=== PATIENT | male | born 1950 | race Caucasian/White ===

== ENCOUNTER → 2016-08-24 | Outpatient (CLI) | payer BC ==
[~2016-08-24] MED LIST: ALBUAER2 INH; ATEN-173 PO; CHOL100010 PO; FLUT0.15 INTNAS; HYDR200T5 PO; HYDR25TA4 PO; MULT-190 PO; MULT-506 PO; OLME1TAB11 PO; OMEG12006 PO; OMEP20TA PO; RIVA1TAB4 PO; SIMV-151 PO; TRIA0.1C20 TOP
--- NOTE | 2016-08-24 14:43 | DIAGNOSTIC IMAGING REPORT ---
AP STANDING VIEW OF BOTH KNEES; 3 VIEWS LEFT KNEE CLINICAL HISTORY: Left knee pain. FINDINGS: An AP standing view of both knees with lateral, tunnel, and sunrise views of the left knee are compared to study dated 03/20/2015. The skeletal structures are osteopenic. No fracture is seen. There is moderate degenerative narrowing at the patellofemoral articulation with mild narrowing seen in the medial and lateral compartments. There are large patellar enthesophytes. There is no evidence of osteochondral defect on the tunnel image. A joint effusion is suspected. Mild soft tissue swelling is present around the knee. Survey images of the right knee on the frontal view show an arthroplasty in near-anatomic alignment. No periprosthetic lucency is suggested. Atherosclerotic calcification is present within the popliteal artery bilaterally. IMPRESSION: 1. Soft tissue swelling and joint effusion with no acute bony abnormality identified in the left knee. 2. Osteopenia and mild degenerative change as above. 3. A right knee arthroplasty is in near anatomic alignment. Electronically signed by: Santos Topete M.D. 08/24/2016 2:41 PM Dictated Date/Time: 08/24/2016 2:38 PM
== END | disposition home or self-care (01) ==
LOC: C.RDSM 14:30
PROVIDERS: ATTEND Physician Assistant
DX: M25.562 Pain in left knee (principal)

== ENCOUNTER → 2016-11-15 | Outpatient (CLI) | payer BC ==
--- NOTE | 2016-11-15 14:06 | DIAGNOSTIC IMAGING REPORT ---
RIGHT HEEL MIN 2 VIEWS CLINICAL HISTORY: 66 years-old Male presenting with RIGHT HEEL PAIN. TECHNIQUE: Frontal and lateral views of the right calcaneus were obtained. COMPARISON: None. FINDINGS: Atherosclerosis. Prominent osteophyte at the posterior calcaneal tuberosity. Mild diffuse soft tissue thickening. No acute fracture or malalignment. IMPRESSION: 1. No acute osseous injury of the right calcaneus. Degenerative changes at the posterior calcaneal tuberosity, insertion site of the Achilles tendon. Electronically signed by: Jacoby Nuñez M.D. 11/15/2016 2:05 PM Dictated Date/Time: 11/15/2016 2:03 PM
== END | disposition home or self-care (01) ==
LOC: C.RDSM 12:16
PROVIDERS: ATTEND Physician Assistant
DX: M79.671 Pain in right foot (principal)

== ENCOUNTER → 2017-05-10 | Outpatient (CLI) | payer BC | END | disposition home or self-care (01) | LOC: C.RDSM 12:45 | PROVIDERS: ATTEND Orthopaedic Surgery Sports Medicine | DX: Z96.659 Presence of unspecified artificial knee joint (principal) ==

== ENCOUNTER → 2017-05-15 | Outpatient (CLI) | payer BC ==
--- NOTE | 2017-05-15 13:14 | DIAGNOSTIC IMAGING REPORT ---
CHEST 2 VIEWS ROUTINE CLINICAL HISTORY: R06.02,R07.89,R06.2 dyspnea COMPARISON STUDY: 03/01/2017 FINDINGS: Moderate cardiomegaly considered stable. Moderate prominence of pulmonary vasculature slightly increased in the prior study. Slight blunting lateral costophrenic angles. Moderate stable degenerative changes thoracic spine. IMPRESSION: Early congestive failure. The above report was generated using voice recognition software. It may contain grammatical, syntax or spelling errors. Electronically signed by: Poncho Thomas M.D. 05/15/2017 1:12 PM Dictated Date/Time: 05/15/2017 1:12 PM
== END | disposition home or self-care (01) ==
LOC: C.RAD1850 12:53
PROVIDERS: ATTEND Physician Assistant
DX: I50.9 Heart failure, unspecified (principal); R06.02 Shortness of breath; R07.89 Other chest pain; R06.2 Wheezing

== ENCOUNTER 2017-07-26 20:47 | Emergency (ER) | payer BC ==
[~2017-07-26 20:47] MED LIST changes: +BNC/20 PO; -OLME1TAB11 PO
[2017-07-26 23:18] LABS: HEMATOCRIT 48.7 % (42-52); HEMOGLOBIN 16.8 g/dL (14.0-18.0); MEAN CORPUSCULAR HEMOGLOBIN 29.7 pg (25-34); MEAN CORPUSCULAR HGB CONC 34.5 g/dl (32-36); MEAN PLATELET VOLUME 10.8 fL (7.4-10.4); PLATELET COUNT 216 K/uL (130-400); RED CELL DISTRIBUTION WIDTH CV 14.1 % (11.5-14.5); WHITE BLOOD COUNT 11.05 K/uL (4.8-10.8)
[2017-07-26 23:22] LABS: BLOOD UREA NITROGEN 21 mg/dl (7-18); CALCIUM 9.6 mg/dl (8.5-10.1); CARBON DIOXIDE 27 mmol/L (21-32); POTASSIUM 3.9 mmol/L (3.5-5.1); SODIUM 136 mmol/L (136-145)
[2017-07-26 23:23] LABS: CREATININE 1.49 mg/dl (0.60-1.40); GLUCOSE 106 mg/dl (70-99)
[2017-07-26 23:24] LABS: INR 1.4 (0.9-1.1); PTT PATIENT 33.4 SECONDS (21.0-31.0)
[2017-07-26] MEDS ORDERED: SODIUM CHLORIDE 0.9% 500ML 500 ML IV STA (23:26)
[2017-07-26] MEDS ORDERED: OXYCODONE IR HOME PACK PO ONE (23:45)
[2017-07-26] MEDS ORDERED: ONDANSETRON HOME PACK 4MG OD TAB PO ONE (23:45)
--- NOTE | 2017-07-27 00:07 | EMERGENCY ROOM VISIT NOTE ---
History Report prepared by Marisabel: Sergio Barker Under the Supervision of: Dr. Narciso Ca D.O. Stated Complaint: LOWER LEFT STOMACH PAIN History of Present Illness The patient is a year 66 old male who presents to the Emergency Room with complaints of constant left flank pain since 1729 today. He notes the pain began to radiate to the front of his abdomen. He notes the pain was worsened with sitting. He reports urinating six times. He notes the pain is relieved with standing. He denies any history of kidney stones. He denies any dark urine. He denies any nausea or vomiting. He reports belching. He notes the pain seems to have dissipated after he urinated while here in the ED and is able to sit down and lay down without significant pain. He currently describes the pain as sore. He has a history of atrial fibrillation and he regularly takes Xarelto. He has a history of pseudogout. He recently had a URI in the fall of 2016. He was recently placed on Lasix about one month ago. Source of History: patient Onset: since 1729 today Position: other (left flank) Quality: other (sore) Timing: constant Modifying Factors (Worsening): other (sitting) Modifying Factors (Relieving): other (standing) Associated Symptoms: No nausea, No vomiting Note: He notes belching. He denies any dark urine. Review of Systems See HPI for pertinent positives & negatives. A total of 10 systems reviewed and were otherwise negative. Past Medical & Surgical Surgical Problems: (1) Status post total knee replacement, right Family History No pertinent family history Social History Smoking Status: Never Smoker Smokeless Tobacco Use: No Alcohol Use: none Drug Use: none Marital Status: Housing Status: lives with significant other Current/Historical Medications Scheduled Atenolol (Tenormin), 25 MG PO BID Cholecalciferol (Vitamin D), 1,000 INTER.UNIT PO QAM Hydrochlorothiazide (Hctz), 25 MG PO QAM Hydroxychloroquine Sulfate (Plaquenil), 200 MG PO BID Multivitamin (Multivitamin), 1 TAB PO QAM Ocuvite Preservision (Ocuvite Preservision), 1 TAB PO BID Olmesartan Medoxomil (Benicar), 20 MG PO QAM [place]-3 Fatty Acids ([place] 3), 2 TAB PO QPM Rivaroxaban (Xarelto), 20 MG PO QPM Simvastatin (Simvastatin), 20 MG PO QPM Triamcinolone Acet 0.1% (Aristocort 0.1%), 1 DOSE TOP 3XWK Scheduled PRN Albuterol (Ventolin), 2 PUFFS INH QID PRN for PRN Fluticasone Propionate (Nasal) (Flonase Allergy Relief), 2 SPRAYS INTNAS BID PRN for RN Omeprazole (Omeprazole), 1 TAB PO DAILY PRN for PRN Allergies Coded Allergies: Diphenhydramine (Verified Allergy, Unknown, RAPID HEARTBEAT, 01/11/16) Erythromycin (Verified Allergy, Unknown, MEMORY LOSS, 01/11/16) Physical Exam Physical Exam GENERAL: Patient is awake, alert, and in no acute distress. Patient is resting comfortably and showing no signs of anxiety EYES: The conjunctivae are clear. The pupils are round and reactive. EARS, NOSE, MOUTH AND THROAT: The nose is without any evidence of any deformity. Mucous membranes are moist tongue is midline NECK: The neck is nontender and supple. RESPIRATORY: Normal respiratory effort is noted there is no evidence of wheezing rhonchi or rales CARDIOVASCULAR: Regular rate and rhythm noted there no murmurs rubs or gallops normal S1 normal S2 GASTROINTESTINAL: The abdomen is soft. Bowel sounds are present in all quadrants. Abdomen is nontender BACK: Left CVA tenderness to percussion, no midline tenderness and ROM appeared intact. MUSCULOSKELETAL/EXTREMITIES: There is no evidence of gross deformity full range of motion is noted in the hips and shoulders SKIN: There is no obvious evidence of any rash. There are no petechiae, pallor or cyanosis noted. NEUROLOGIC: Patient is awake alert and oriented x3 strength is symmetric patellar reflexes are 2+ bilaterally Medical Decision & Procedures ER Provider Diagnostic Interpretation: Radiology results as stated below per my review and interpretation: CT A/P: Revealed Preliminary Findings Only See Final Report For Complete Findings CT ABDOMEN & PELVIS Without Contrast: There are a total 2 stones measuring 2 mm in the mid and inferior left kidney. No hydronephrosis. No ureteral stones. There are 2 tiny stones measuring 2 mm within the bladder, mainly at the posterior lateral right aspect. Small mildly hyperdense structure within the gallbladder probably represents cholelithiasis. No CT evidence of cholecystitis. No biliary dilatation. Normal appendix. No bowel wall thickening or bowel obstruction. Small fat-containing right inguinal hernia. Levoscoliosis. Multilevel degenerative changes of the spine. Bilateral L4 pars defect with anterolisthesis at L4-L5 measuring 7mm. (Transitional vertebral body at lumbosacral junction designated S1). Radiologist: Ren Horvath MD Study ready at 23:06 and initial results transmitted at 23:18 Laboratory Results 07/26/17 22:00 07/26/17 22:00 Test 07/26/17 22:00 Red Blood Count 5.66 M/uL (4.7-6.1) Mean Corpuscular Volume 86.0 fL (80-100) Mean Corpuscular Hemoglobin 29.7 pg (25-34) Mean Corpuscular Hemoglobin Concent 34.5 g/dl (32-36) RDW Standard Deviation 44.0 fL (36.4-46.3) RDW Coefficient of Variation 14.1 % (11.5-14.5) Mean Platelet Volume 10.8 fL (7.4-10.4) Prothrombin Time 14.1 SECONDS (9.0-12.0) Prothromb Time International Ratio 1.4 (0.9-1.1) Activated Partial Thromboplast Time 33.4 SECONDS (21.0-31.0) Partial Thromboplastin Ratio 1.3 Urine Color YELLOW Urine Appearance CLEAR (CLEAR) Urine pH 5.0 (4.5-7.5) Urine Specific [place] 1.015 (1.000-1.030) Urine Protein NEG (NEG) Urine Glucose (UA) NEG (NEG) Urine Ketones NEG (NEG) Urine Occult Blood 2+ (NEG) Urine Nitrite NEG (NEG) Urine Bilirubin NEG (NEG) Urine Urobilinogen NEG (NEG) Urine Leukocyte Esterase NEG (NEG) Urine WBC (Auto) 0 /hpf (0-5) Urine RBC (Auto) 5-10 /hpf (0-4) Urine Hyaline Casts (Auto) 0 /lpf (0-5) Urine Epithelial Cells (Auto) 0-5 /lpf (0-5) Urine Bacteria (Auto) NEG (NEG) Anion Gap 7.0 mmol/L (3-11) Estimated GFR () 56.7 Estimated GFR (Non- 48.9 BUN/Creatinine Ratio 14.0 (10-20) Calcium Level 9.6 mg/dl (8.5-10.1) Laboratory results per my review. Medications Administered Medications (Trade) Dose Ordered Sig/Cynthia Route Start Time Stop Time Status Last Admin Dose Admin Sodium Chloride 500 ml @ 999 mls/hr Q31M STAT IV 07/26/17 23:26 07/26/17 23:56 DC 07/26/17 23:37 999 MLS/HR Oxycodone HCl (Roxicodone Immediate Rel 5MG Home Pack) 1 homepack UD ONCE PO 07/26/17 23:45 07/26/17 23:46 DC 07/26/17 23:45 1 HOMEPACK Ondansetron HCl (ZOFRAN ODT 4MG Home Pack) 1 homepack UD ONCE PO 07/26/17 23:45 07/26/17 23:46 DC 07/26/17 23:45 1 HOMEPACK ED Course 3: The patient was evaluated in room C10. A complete history and physical examination were performed. 2336: I reassessed the patient at this time. He is feeling better and resting comfortably. I discussed the results and treatment plan with the patients mother. I answered all pertaining questions that she had. She expressed understanding and verbalized agreement. The patient will be discharged home. Medical Decision Prior records/ancillary studies reviewed. Triage Nursing notes reviewed. Differential diagnosis: Etiologies such as renal colic, appendicitis, diverticulitis, mesenteric ischemia, aortic pathology, infections, inflammatory bowel disease, PUD, biliary pathology, UTI, as well as others were entertained. The patient is a 66-year-old male who presented to the emergency department for an evaluation of flank pain. The patient had very significant flank pain prior to arrival which significantly improved prior to my evaluation. The patient had hematuria. He had a CAT scan which revealed some renal calculi as well as calculi in the bladder. At this time I do feel this is consistent with a recently passed kidney stone. I discussed the patient's laboratory and radiographic studies with him. He did not want any pain medication. He was encouraged to continue using Tylenol as directed for pain and follow-up with his primary care physician as soon as possible. He was also encouraged to drink plenty clear liquids. He was treated with IV fluids in the emergency department. He was also encouraged to return the emergency department immediately if symptoms change worsen or the need arises. Medication Reconcilliation Current Medication List: was personally reviewed by me Blood Pressure Screening Patient's blood pressure: Elevated blood pressure Blood pressure disposition: Elevated BP felt to be situational Impression Primary Impression: Kidney stone Scribe Attestation The scribe's documentation has been prepared under my direction and personally reviewed by me in its entirety. I confirm that the note above accurately reflects all work, treatment, procedures, and medical decision making performed by me. Departure Information Dispostion Home / Self-Care Referrals Cassandra Manuel PA-C (PCP) Patient Instructions Kidney Stones Expectant Therapy Additional Instructions Call your family doctor in the morning to schedule a follow-up appointment. Continue using Motrin and Tylenol as directed for pain. Drink plenty clear liquids.
--- NOTE | 2017-07-27 10:19 | DIAGNOSTIC IMAGING REPORT ---
ABD/PELVIS WITHOUT FOR STONE CT DOSE: HISTORY: Abdominal pain. Flank pain. PAIN AT LEFT FLANK TECHNIQUE: Multiaxial CT images of the abdomen and pelvis were performed without the use of intravenous and oral contrast according to the standard department stone protocol. A dose lowering technique was utilized adhering to the principles of ALARA. COMPARISON STUDY: None. FINDINGS: Lung bases are clear. Liver spleen and pancreas are unremarkable. There are 2 nonobstructing calcifications measuring 2.5 mm within the mid and lower pole left kidney. Kidneys are specifically negative for hydronephrosis. Ureters are negative for distention. There are 2 calcifications within the urinary bladder. The bowel pattern within the abdomen and pelvis is nonobstructive. Multiple small gallstones. IMPRESSION: 1. No evidence for an obstructing urinary tract calculus. 2. 2 nonobstructing left renal calcifications. 3. 2 calcifications within the urinary bladder. 4. Nonobstructive bowel pattern. The above report was generated using voice recognition software. It may contain grammatical, syntax or spelling errors. Electronically signed by: Poncho Thomas M.D. 07/27/2017 6:15 AM Dictated Date/Time: 07/27/2017 6:09 AM
== END 2017-07-27 00:11 | disposition home or self-care (01) ==
LOC: C.EDC 20:47
DX: N20.0 Calculus of kidney (principal); I48.91 Unspecified atrial fibrillation; Z79.01 Long term (current) use of anticoagulants; Z79.899 Other long term (current) drug therapy; Z88.1 Allergy status to other antibiotic agents; Z88.8 Allergy status to other drugs, medicaments and biological substances

== ENCOUNTER → 2017-08-24 | Outpatient (CLI) | payer BC | END | disposition home or self-care (01) | LOC: C.RDSM 17:16 | PROVIDERS: ATTEND Orthopaedic Surgery Sports Medicine | DX: M79.642 Pain in left hand (principal); Z88.1 Allergy status to other antibiotic agents; Z88.8 Allergy status to other drugs, medicaments and biological substances ==

== ENCOUNTER 2019-04-15 05:26 | Observation (INO) ==
--- NOTE | 2019-04-10 15:25 | Anesthesiology Consultation ---
Date of Service April 10, 2019 Assessment & Plan (1) Encounter for pre-operative examination: Chart Review Chart Review: Acceptable Risk for Surgery and Patient NOT seen in Pre Admission Testing History Surgery Operation Date: 04/15/19 08:20 Proposed Procedures p Open Right Inguinal Hernia Repair - Cooper Dang MD, FACS Height/Weight Height: 5 ft 10.5 in Weight: 107.501 kg Allergies Allergy/AdvReac Type Severity Reaction Status Date / Time diphenhydramine Allergy Unknown RAPID Verified 04/10/19 13:12 HEARTBEAT erythromycin base Allergy Unknown MEMORY LOSS Verified 04/10/19 13:12 Medications Home Medications Medication Instructions Recorded Confirmed Last Taken acetaminophen [Tylenol Extra 1,000 mg PO Q6H PRN 03/26/19 04/10/19 03/26/19 08:0 0 Strength] allopurinol [Zyloprim] 300 mg PO QAM 03/26/19 04/10/19 03/26/19 amlodipine [Norvasc] 5 mg PO BID 03/26/19 04/10/19 03/26/19 atorvastatin [Lipitor] 20 mg PO QPM 03/26/19 04/10/19 03/25/19 cholecalciferol (vitamin D3) 5,000 unit PO QAM 03/26/19 04/10/19 03/26/19 [Vitamin D3] diclofenac sodium 0 g TOPICAL UNKNOWN PRN 03/26/19 04/10/19 Unknown furosemide 20 mg PO DAILY PRN 03/26/19 04/10/19 Unknown hydroxychloroquine [Plaquenil] 200 mg PO QAM 03/26/19 04/10/19 03/26/19 ketoconazole 1 applic TOPICAL UNKNOWN PRN 03/26/19 04/10/19 Unknown metoprolol succinate [Toprol XL] 100 mg PO QPM 03/26/19 04/10/19 03/25/19 [id number]-[id number]-[id number] 1 tab PO QAM 03/26/19 04/10/19 03/26/19 [Multivitamin 50 Plus] olmesartan [Benicar] 40 mg PO QAM 03/26/19 04/10/19 03/26/19 omega 5-pty-zcf-fish oil [Fish Oil] 2 cap PO QPM 03/26/19 04/10/19 03/25/19 oxycodone [Roxicodone] 5 mg PO Q6H PRN #12 tab 03/26/19 04/10/19 Unknown prednisone 0 mg PO DAILY PRN 03/26/19 04/10/19 Unknown rivaroxaban [Xarelto] 20 mg PO QPM 03/26/19 04/10/19 03/25/19 vitamins A,C,U-ibwv-bgffiy 1 cap PO BID 03/26/19 04/10/19 03/26/19 [PreserVision AREDS] albuterol sulfate [Ventolin HFA] 1 puff INHALATION QID PRN 04/10/19 04/10/19 Unknown metoprolol succinate 50 mg PO QPM 04/10/19 04/10/19 Unknown tamsulosin [Flomax] 0.4 mg PO QPM 04/10/19 04/10/19 Unknown Past Medical History Medical History (Updated 04/10/19 @ 15:29 by Leon Segura) Afib dx 1998; permanent; AC and rate controlled with xarelto and metoprolol; follows with Dr. Pérez Atrial flutter s/p 2015 cardiac ablation Hx of gout Hx of renal calculi will be seenby urology 04.10.19 1300 Hyperlipidemia Hypertension Past Surgical History Surgical History (Updated 04/10/19 @ 12:25 by Ruth Coughlin RN) History of ankle surgery arthroscopy of both ankles and repair History of cardiac radiofrequency ablation for atrial flutter 2016 History of carpal tunnel surgery right and left History of gastric surgery repair of stomach rupture History of open reduction and internal fixation (ORIF) procedure right wrist ORIF History of total right knee replacement Hx of shoulder surgery 2 repair of rotator cuff on right 1 repair of rotator cuff on left Social History Smoking Status: Never smoker Do You Dip or Chew Tobacco: No Hx Alcohol Use: Yes Alcohol type: beer alcohol intake frequency: holidays/special occasions only Hx Substance Use: No substance use type: does not use Testing Laboratory Results 03/26/19 WBC: 6.37 H/H: 17.0/49.4 PLATELETS: 183 SODIUM: 137 POTASSIUM: 3.7 CHLORIDE: 104 CO2: 27 BUN: 19 CREATININE: 1.17 GLUCOSE: 95 Electrocardiogram Date: 03/04/19 Findings: + AFIB @ (79bpm)
[2019-04-15] MEDS ORDERED: LR 15ML/HR IV SCH (06:00)
[2019-04-15] MEDS ORDERED: CEFAZOLIN 2000MG 2,000 MG/15 ML SYR IV SCH (06:00)
[2019-04-15] MEDS ORDERED: BUPIVACAINE 0.5 % 5 MG/1 ML MPF 30ML VIAL ONE (06:34)
[2019-04-15] MEDS ORDERED: CEFAZOLIN 250 MG/ML 1 GM VIAL ONE (06:34)
--- NOTE | 2019-04-15 06:42 | History & Physical Bridge Note ---
Date of Service April 15, 2019 History & Physical Bridge Note I have examined the patient, reviewed the History & Physical and in the interval since the performance of the History & Physical I have noted the following changes of clinical significance: no changes noted
[2019-04-15] MEDS ORDERED: LIDOCAINE HCL 2% 2 ML VIAL/AMP(20MG/ML) INFIL ONE (06:45)
[2019-04-15] MEDS ORDERED: PROPOFOL IV EMULSION 10 MG/ML 20 ML VIAL IV ONE (06:45)
[2019-04-15] MEDS ORDERED: NEOSTIGMINE METHYLSULFATE 5 MG/5 ML SYR ONE (06:45)
[2019-04-15] MEDS ORDERED: ONDANSETRON INJ 2 MG/ML 2 ML VIAL ONE (06:45)
[2019-04-15] MEDS ORDERED: DEXAMETHASONE SOD INJ 4 MG/ML VIAL ONE (06:45)
[2019-04-15] MEDS ORDERED: GLYCOPYRROLATE 0.2 MG/ML VIAL ONE (06:45)
[2019-04-15] MEDS ORDERED: SCOPOLAMINE 1.5 MG TDSY TD SCH (06:45)
[2019-04-15] MEDS ORDERED: SCOPOLAMINE 1.5 MG TDSY ONE (06:46)
[2019-04-15] MEDS ORDERED: MIDAZOLAM HCL 1 MG/ML 2ML VIAL ONE (06:46)
[2019-04-15] MEDS ORDERED: fentaNYL citrate 100 MCG/2 ML VIAL ONE ×2 (06:46)
--- NOTE | 2019-04-15 06:48 | Anesthesiology Consultation ---
Date of Service April 15, 2019 Assessment & Plan Chart Review Chart Review: Acceptable Risk for Surgery and Patient NOT seen in Pre Admission Testing Consults Requested none ASA ASA3 Proposed Anesthesia Anesthesia Type: General Risk / Benefits Reviewed With: PT / POA / Parent / Guardian, Accepts Plan and Informed Consent Obtained History Surgery Operation Date: 04/15/19 07:00 Proposed Procedures p Right Open Inguinal Hernia Repair - Cooper Dang MD, FACS Height/Weight Height: 5 ft 10.5 in Weight: 106.3 kg Allergies Allergy/AdvReac Type Severity Reaction Status Date / Time diphenhydramine Allergy Intermediate RAPID Verified 04/15/19 05:46 HEARTBEAT erythromycin base Allergy Intermediate MEMORY LOSS Verified 04/15/19 05:46 Medications Home Medications Medication Instructions Recorded Confirmed Last Taken Multivitamin 50 Plus 1 tab PO QAM 03/26/19 04/15/19 1 Week Ago ~04/08/19 PreserVision AREDS 1 cap PO BID 03/26/19 04/15/19 1 Week Ago ~04/08/19 Xarelto 20 mg PO QPM 03/26/19 04/15/19 04/10/19 18:00 acetaminophen [Tylenol Extra 1,000 mg PO Q6H PRN 03/26/19 04/15/19 3 Days Ago Strength] ~04/12/19 allopurinol [Zyloprim] 300 mg PO QAM 03/26/19 04/15/19 04/15/19 04:30 amlodipine [Norvasc] 5 mg PO BID 03/26/19 04/15/19 04/15/19 04:30 atorvastatin [Lipitor] 20 mg PO QPM 03/26/19 04/15/19 04/14/19 18:00 cholecalciferol (vitamin D3) 5,000 unit PO QAM 03/26/19 04/15/19 1 Week Ago [Vitamin D3] ~04/08/19 diclofenac sodium 0 g TOPICAL UNKNOWN PRN 03/26/19 04/15/19 1 Month Ago ~03/16/19 furosemide 20 mg PO DAILY PRN 03/26/19 04/15/19 1 Month Ago ~03/16/19 hydroxychloroquine [Plaquenil] 200 mg PO QAM 03/26/19 04/15/19 04/14/19 07:00 ketoconazole 1 applic TOPICAL UNKNOWN PRN 03/26/19 04/15/19 3 Days Ago ~04/12/19 metoprolol succinate [Toprol XL] 100 mg PO QPM 03/26/19 04/15/19 04/14/19 18:00 olmesartan [Benicar] 40 mg PO QAM 03/26/19 04/15/19 04/14/19 07:00 omega 6-ooj-uqw-fish oil [Fish Oil] 2 cap PO QPM 03/26/19 04/15/19 1 Week Ago ~04/08/19 oxycodone [Roxicodone] 5 mg PO Q6H PRN #12 tab 03/26/19 04/15/19 3 Months Ago ~01/14/19 prednisone 0 mg PO DAILY PRN 03/26/19 04/15/19 Unknown albuterol sulfate [Ventolin HFA] 1 puff INHALATION QID PRN 04/10/19 04/15/19 3 Weeks Ago ~03/25/19 metoprolol succinate 50 mg PO QPM 04/10/19 04/15/19 04/14/19 18:00 tamsulosin [Flomax] 0.4 mg PO QPM 04/10/19 04/15/19 04/14/19 19:00 hydrocodone-acetaminophen 1 tab PO Q6H PRN #20 tab 04/12/19 04/15/19 2 Months Ago ~02/13/19 Active Medications Generic Name Dose Route Start Last Admin Trade Name Freq PRN Reason Stop Dose Admin Lactated Ringer's 1,000 mls @ 15 mls/hr 04/15/19 06:00 04/15/19 05:58 Lr IV 04/16/19 05:59 15 mls/hr .Q24H JANUSZ Administration NPO Date Last Intake of Fluids: 04/14/19 Time Last Intake of Fluids: 20:00 Last Intake of Fluids Comment: sips with meds Date Last Intake of Solids: 04/14/19 Time Last Intake of Solids: 20:00 Past Medical History Medical History Afib dx 1998; permanent; AC and rate controlled with xarelto and metoprolol; follows with Dr. Pérez Atrial flutter s/p 2015 cardiac ablation Hx of gout Hx of renal calculi will be seenby urology 04.10.19 1300 Hyperlipidemia Hypertension Sleep apnea CPAP Exercise / Class Metabolic Activity II 4-5 Yardwork/Stairs/Walk up hill Past Family History Family History Son Family history of diabetes mellitus Daughter Family history of diabetes mellitus Other Adopted Past Surgical History Surgical History History of ankle surgery arthroscopy of both ankles and repair History of cardiac radiofrequency ablation for atrial flutter 2016 History of carpal tunnel surgery right and left History of colonoscopy History of esophagogastroduodenoscopy (EGD) History of gastric surgery repair of stomach rupture History of open reduction and internal fixation (ORIF) procedure right wrist ORIF History of total right knee replacement Hx of shoulder surgery 2 repair of rotator cuff on right 1 repair of rotator cuff on left Nausea and vomiting after administration of anesthetic agent Past Anesthesia History No Hx of Anesthesia Complications and No Family Hx of Anesthesia Complications History of PONV No Hx of Motion Sickness and History of PONV Social History Smoking Status: Never smoker Do You Dip or Chew Tobacco: No Hx Alcohol Use: Yes Alcohol type: beer alcohol intake frequency: holidays/special occasions only Hx Substance Use: No substance use type: does not use Physical Exam Vital Signs Last Vital Signs Temp 36.5 C 04/15/19 05:54 Pulse 92 H 04/15/19 05:54 Resp 18 04/15/19 05:54 BP 174/98 H 04/15/19 05:54 Pulse Ox 97 04/15/19 05:54 Constitutional + obese ENMT Mouth: no dentition abnormality Thyromental Distance: > or= 3.5 Finger Breadths Mallampati Class: II Neck normal visual inspection, trachea midline and + facial hair; neck extension not limited Respiratory normal respiratory effort Auscultation: lungs clear to auscultation bilaterally Cardiovascular Rate/Rhythm: + abnormal rate (afib) and + abnormal rhythm (afib) Heart Sounds: no murmur Vessels: no carotid bruit Musculoskeletal Spine: normal cervical ROM Neurologic moves all extremities Motor/Sensory: no sensory deficit Psychiatric Orientation: alert and oriented x 3 Testing Laboratory Results WBC: 6.37 Hc Hct: 49.4 PLATELETS: 183 SODIUM: 137 POTASSIUM: 3.7 CHLORIDE: 104 CO2:27 BUN: 19 CREATININE: 1.17 GLUCOSE: 183 PT: PTT: INR: UA: TYPE AND SCREEN: Electrocardiogram Date: 03/04/19 Findings: + AFIB @ (at 79) Chest X-Ray Date: 04/11/19 Findings: + NAD and + cardiomegaly
[2019-04-15] MEDS ORDERED: ePHEDrine sulfate 50 MG/ML AMP IV PRN (06:54)
[2019-04-15] MEDS ORDERED: PROMETHAZINE HCL 12.5 MG in SODIUM CHLORIDE 0.9% 50 ML IV PRN ×2 (06:54→08:49)
[2019-04-15] MEDS ORDERED: LABETALOL HCL IV 5 MG/ML 20ML IV PRN (06:54)
[2019-04-15] MEDS ORDERED: ATROPINE SULFATE 0.1 MG/ML 10ML SYR IV PRN (06:54)
[2019-04-15] MEDS ORDERED: HYDROmorphone INJ 1 MG/ML SYRINGE IV PRN (06:54)
[2019-04-15] MEDS ORDERED: NALOXONE HCL 0.4 MG/1 ML VIAL/CARP IV PRN (06:54)
[2019-04-15] MEDS ORDERED: ONDANSETRON INJ 2 MG/ML 2 ML VIAL IV PRN ×2 (06:54→08:49)
[2019-04-15] MEDS ORDERED: FLUMAZENIL 0.1 MG/1 ML 10 ML VIAL IV PRN (06:54)
[2019-04-15] MEDS ORDERED: PHENYLEPHRINE 100MCG/ML 5ML SYR ONE (07:32)
[2019-04-15] MEDS ORDERED: KETOROLAC 30 MG/ML VIAL ONE (07:40)
[2019-04-15] MEDS ORDERED: ACETAMINOPHEN 1,000 MG/100 ML VIAL IV STA (07:52)
--- NOTE | 2019-04-15 07:52 | Post Operative Brief Note ---
PG Immediate Post Op with CF Date of Surgery April 15, 2019 Pre & Post Diagnosis Operation Date: 04/15/19 07:00 Pre-Op Diagnosis: Right Inguinal Hernia Post-Op Diagnosis: Right Inguinal Hernia I identified the patient and participated in the time-out.: Yes Procedure Operation Date: 04/15/19 07:00 Actual Procedures p Right Open Inguinal Hernia Repair with Mesh(Right) - Cooper Dang MD, FACS Surgeon Cooper Dang MD, FACS Second Shift Supervisor Shania Camp Estimated Blood Loss 5 Findings Consistent with Post-Op Diagnosis Specimens Specimen Description: A. Lipoma
[2019-04-15] MEDS: fentaNYL citrate 100 MCG/2 ML VIAL IV PRN ×4 (08:17→08:33)
--- NOTE | 2019-04-15 08:30 | Operative Report ---
DATE OF OPERATION: 04/15/2019 NAME OF OPERATION: Open right inguinal hernia repair. PREOPERATIVE DIAGNOSIS: Right inguinal hernia. POSTOPERATIVE DIAGNOSIS: Right inguinal hernia with indirect defect. STAFF SURGEON: Cooper Dang M.D. WALLCOVERING HANGER: Mady Hall. ANESTHESIA: General LMA. DESCRIPTION OF PROCEDURE: The patient was brought in the operating room and placed on the operating table in supine position. His right lower quadrant prepped and draped in usual fashion. My data entry assistant helped with prepping, draping, repair of the hernia and closure of the wound. A 0.5% plain Marcaine was used to anesthetize skin and subcutaneous tissue. Incision made carrying dissection down through adipose tissue to the external oblique fibers. They were incised along their length to the external ring, mobilizing the cord structures. The patient had a lipoma of the cord and an indirect hernia sac which was dissected away from the cord structures and reduced. The lipoma was excised, ligating it using 2-0 silk suture. The internal ring was reinforced using a mesh plug which was secured to surrounding tissue using 0 silk suture and 2-0 Ethibond suture. Large mesh patch placed into the floor of the canal around the cord structures, secured to surrounding tissue using 2-0 Ethibond suture. The site was irrigated with antibiotic solution and the external oblique fibers closed over the mesh around the cord structures using 2-0 Ethibond suture. Deep tissue anesthetized using 0.5% plain Marcaine. Subcutaneous tissue reapproximated using 2-0 plain suture and the skin reapproximated using 4-0 nylon suture with Steri-Strips. Dressing applied and patient transferred to recovery room in stable condition. I attest to the content of the Intraoperative Record and any orders documented therein. Any exception s are noted below.
--- NOTE | 2019-04-15 08:48 | Anesthesiology Progress Note ---
Date of Service April 15, 2019 Anesthesia Post Procedure Vital Signs Vital Signs: Temp Pulse Pulse Resp BP BP Pulse Ox 04/15/19 08:45 36.6 C 86 18 136/85 97 04/15/19 08:35 79 14 136/85 98 04/15/19 08:25 74 15 144/97 H 100 04/15/19 08:15 79 17 142/89 H 100 04/15/19 08:05 36.5 C 72 12 125/80 99 04/15/19 05:54 36.5 C 92 H 18 174/98 H 97 Pain Intensity Right Groin: Pain Intensity: 3 Transfer of Care Handoff Completed per policy Notes Mental Status: alert / awake / arousable Patient Amnestic to Procedure: Yes Nausea / Vomiting: adequately controlled Pain: adequately controlled Airway Patency, RR, SpO2: stable & adequate BP & HR: stable & adequate Hydration State: stable & adequate Anesthetic Complications: no major complications apparent
[2019-04-15] MEDS ORDERED: OXYCODONE/ACETAMINOPHEN 5mg/325mg TAB PO PRN ×2 (08:49)
[2019-04-15] MEDS ORDERED: SODIUM CHLORIDE 0.9% 1000ML 1,000 ML IV SCH (08:49)
[2019-04-15] MEDS ORDERED: MoRPHine SULFATE 2 MG/ML CARP IV PRN (08:49)
[2019-04-15] MEDS ORDERED: FUROSEMIDE 20 MG TAB PO PRN (08:49)
[2019-04-15] MEDS ORDERED: ALBUTEROL HFA 8 GM INHALER INH PRN (08:49)
[2019-04-15] MEDS ORDERED: MoRPHine SULFATE 4 MG/ML 1 ML CARP\\VIAL IV PRN (08:49)
[2019-04-15] MEDS ORDERED: PROMETHAZINE HCL 25 MG in SODIUM CHLORIDE 0.9% 50 ML IV PRN (08:49)
--- NOTE | 2019-04-15 09:18 | Hospitalist Consultation ---
Date of Consultation April 15, 2019 Assessment & Plan (1) H/O right inguinal hernia repair: - Pain control, bowel regimen per primary team - Activity/lifting limitations per primary team - NSS at 50 ml/hr until 1400 today then stop - Diet as tolerated (2) Afib: - Hold xarelto- resume per surgery - Cont metoprolol succinate 150 mg QPM (3) Atrial flutter: s/p cardiac ablation (4) Hypertension: - Continue amlodipine 5 mg BID, metoprolol as above and lasix 20 mg daily prn. Monitor for fluid accumulation and BP status s/p surgical procedure. Continue IVF as above and stop at 1400. (5) Hyperlipidemia: - Cont atorvastatin (6) Hx of gout: - Cont allopurinol (7) Sleep apnea: - Cont CPAP (8) Left ureteral stone: - s/o lithotripsy on 04/12/[address] Gay, has f/u scheduled next week . Continue flomax. - Monitor for residual hematuria - pt notes urine has looked clear and yellow (9) DVT prophylaxis: - Ambulatory, resume xarelto per primary team CODE: Full Dispo: From home, will remain in the hospital overnight and likely discharge tomorrow per primary team. Thank you for involving us in the care of Mr. Dailey. Please do not hesitate to call with questions or concerns. Supervising Physician Co-Signing Physician Notes I reviewed above note by APC and agree with it. I obtained a history and physical examination during my face to face encounter with the patient. My history, physical examination and plan did not differ from the above documentation. Will recommend to continue home BP medications to control his blood pressure. History of Present Illness Reason for Consultation: Medical management Requesting Physician: Dr. Dang Attending Physician: Cooper Dang MD, [facility] History of Present Illness This is a 68 yo M with PMHx of afib, atrial flutter s/p 2016 cardiac ablation, HTN, HLD, gout, hx of nephrolithiasis and sleep apnea on CPAP who presents for an elective right inguinal hernia repair performed by Dr. Dang on 04/15/19. The patient is doing well after surgery. He has eaten breakfast without difficulty or nausea, his pain is very well controlled, he has been up and ambulated to the bathroom without difficulty. His is present at bedside. She notes that she has his CPAP machine with her in the car. She also notes he underwent lithotripsy last Monday and that if there is any hematuria that this is to be expected. He was recently prescribed flomax which he is taking, and vicodin, however this Rx has not been picked up as he didn't need it. Pt does not prefer to take pain medications, and states he will not likely need any prescription pain meds upon d/c. Allergies Allergy/AdvReac Type Severity Reaction Status Date / Time diphenhydramine Allergy Intermediate RAPID Verified 04/15/19 05:46 HEARTBEAT erythromycin base Allergy Intermediate MEMORY LOSS Verified 04/15/19 05:46 Home Medications Home Medications Medication Instructions Recorded Confirmed Type Multivitamin 50 Plus 1 tab PO QAM 03/26/19 04/15/19 History PreserVision AREDS 1 cap PO BID 03/26/19 04/15/19 History Xarelto 20 mg PO QPM 03/26/19 04/15/19 History acetaminophen [Tylenol Extra 1,000 mg PO Q6H PRN 03/26/19 04/15/19 History Strength] allopurinol [Zyloprim] 300 mg PO QAM 03/26/19 04/15/19 History amlodipine [Norvasc] 5 mg PO BID 03/26/19 04/15/19 History atorvastatin [Lipitor] 20 mg PO QPM 03/26/19 04/15/19 History cholecalciferol (vitamin D3) 5,000 unit PO QAM 03/26/19 04/15/19 History [Vitamin D3] diclofenac sodium 0 g TOPICAL UNKNOWN PRN 03/26/19 04/15/19 History furosemide 20 mg PO DAILY PRN 03/26/19 04/15/19 History hydroxychloroquine [Plaquenil] 200 mg PO QAM 03/26/19 04/15/19 History ketoconazole 1 applic TOPICAL UNKNOWN PRN 03/26/19 04/15/19 History metoprolol succinate [Toprol XL] 100 mg PO QPM 03/26/19 04/15/19 History olmesartan [Benicar] 40 mg PO QAM 03/26/19 04/15/19 History omega 1-kct-lvy-fish oil [Fish Oil] 2 cap PO QPM 03/26/19 04/15/19 History oxycodone [Roxicodone] 5 mg PO Q6H PRN #12 tab 03/26/19 04/15/19 Rx prednisone 0 mg PO DAILY PRN 03/26/19 04/15/19 History albuterol sulfate [Ventolin HFA] 1 puff INHALATION QID PRN 04/10/19 04/15/19 History metoprolol succinate 50 mg PO QPM 04/10/19 04/15/19 History tamsulosin [Flomax] 0.4 mg PO QPM 04/10/19 04/15/19 History hydrocodone-acetaminophen 1 tab PO Q6H PRN #20 tab 04/12/19 04/15/19 Rx cephalexin [Keflex] 500 mg PO TID #15 cap 04/16/19 Rx Patient History Medical History (Updated 04/15/19 @ 09:20 by Ting Cordova PA-C) Afib dx 1998; permanent; AC and rate controlled with xarelto and metoprolol; follows with Dr. Pérez Atrial flutter s/p 2015 cardiac ablation Hx of gout Hx of renal calculi will be seenby urology 04.10.19 1300 Hyperlipidemia Hypertension Sleep apnea CPAP Surgical History (Updated 04/15/19 @ 11:02 by Aurora Silverman RN) H/O umbilical hernia repair (04/15/19) Open right inguinal hernia repair. Dr. Dang 04-15-19 History of ankle surgery arthroscopy of both ankles and repair History of cardiac radiofrequency ablation for atrial flutter 2016 History of carpal tunnel surgery right and left History of colonoscopy History of esophagogastroduodenoscopy (EGD) History of gastric surgery repair of stomach rupture History of open reduction and internal fixation (ORIF) procedure right wrist ORIF History of total right knee replacement Hx of shoulder surgery 2 repair of rotator cuff on right 1 repair of rotator cuff on left Nausea and vomiting after administration of anesthetic agent Family History Son Family history of diabetes mellitus Daughter Family history of diabetes mellitus Other Adopted Social History (Updated 04/10/19 @ 08:50 by Aurora Silverman, LEISA) Preferred Language: Croatian Communication Ability: Effective Health Evaluator Required: No Beliefs That Will Affect Care: None marital status: Current Living Situation: Spouse current occupational status: retired Other Information That Helps Us Care for You: No Feels Safe at Home: Yes Safety Concerns: Feels Safe At This Time Smoking Status: Never smoker Do You Dip or Chew Tobacco: No ; Second Hand Exposure: No ; Tobacco Cessation Education Requested by Patient: No Hx Alcohol Use: Yes Alcohol type: beer Hx Substance Use: No Review of Systems Review of Systems: Constitutional: No fever, sweats or chills Eyes: No diplopia, no worsening or blurred vision ENT: normal hearing, no trouble swallowing Respiratory: No cough, sputum, dyspnea at rest or on exertion Cardiovascular: No chest pain, tightness or palpitations Abdomen: No pain, nausea, vomiting, diarrhea or constipation Musculoskeletal: No joint pain, calf pain, swelling Neurologic: No weakness, numbness/tingling, or balance problems Psychiatric: No anxiety or depression Skin: No rash or itch Physical Exam Physical Exam: General: awake, alert, no apparent distress Head: Normocephalic, atraumatic ENT: PERRL, EOMI, no pharyngeal exudate, mucous membranes moist Chest: Clear to auscultation, on room air, no adventitious breath sounds Cardiac: Regular rate and rhythm, no murmur, no JVD, normal peripheral pulses, good capillary refill Abdominal: NABS x 4 quadrants, dressing c/d/i, icepack over right lower abdomen, soft, nontender to palpation, no rebound, guarding or tenderness Extremities: Normal inspection, no peripheral edema or erythema, calfs nontender to palpation Psych: Normal mood and affect Neuro: AAO x 3, no gross motor deficits, speech is clear, no peripheral sensory deficits Results & Data Vital Signs (Past 12 Hours) Vital Signs Temp Pulse Pulse Resp BP BP Pulse Ox 04/15/19 08:45 36.6 C 86 18 136/85 97 04/15/19 08:35 79 14 136/85 98 04/15/19 08:25 74 15 144/97 H 100 04/15/19 08:15 79 17 142/89 H 100 04/15/19 08:05 36.5 C 72 12 125/80 99 04/15/19 05:54 36.5 C 92 H 18 174/98 H 97 PG Care Time/CCT Total # of Minutes Spent Total Time Spent with Patient: Total time spent is greater than 50% in coordination of care (as documented) at patient's floor/unit and/or counseling patient:
[2019-04-15] MEDS: CHECK SCOPOLAMINE PATCH PLACEMENT SCH ×2 (10:12→15:24)
[2019-04-15] MEDS: OLMESARTAN MEDOXOMIL 40 MG TAB PO SCH (10:24)
[2019-04-15] MEDS: HYDROXYCHLOROQUINE SULFATE 200 MG TAB PO SCH (10:24)
[2019-04-15] MEDS: MAGNESIUM HYDROXIDE SUSP 30 ML UDC PO SCH ×2 (10:24→20:17)
[2019-04-15] MEDS: DOCUSATE SODIUM/SENNA 50/8.6MG TAB PO SCH ×2 (10:24→20:18)
[2019-04-15] MEDS: CEFAZOLIN 2000MG 2,000 MG/15 ML SYR IV SCH ×2 (14:16→21:15)
[2019-04-15] MEDS: ACETAMINOPHEN 325 MG TAB PO PRN ×2 (15:24→21:25)
[2019-04-15] MEDS: AMLODIPINE BESYLATE 5 MG TAB PO SCH (20:17)
[2019-04-15] MEDS ORDERED: METOPROLOL SUCC 50MG EXT REL TAB PO SCH ×2 (21:00)
[2019-04-15] MEDS ORDERED: ATORVASTATIN 20 MG TAB PO SCH (21:00)
[2019-04-15] MEDS ORDERED: TAMSULOSIN HCL 0.4 MG CAP PO SCH (21:00)
[2019-04-16] MEDS: CHECK SCOPOLAMINE PATCH PLACEMENT SCH ×2 (00:09→07:13)
[2019-04-16] MEDS: ACETAMINOPHEN 325 MG TAB PO PRN (02:29)
[2019-04-16] MEDS: CEFAZOLIN 2000MG 2,000 MG/15 ML SYR IV SCH (05:29)
[2019-04-16] MEDS: AMLODIPINE BESYLATE 5 MG TAB PO SCH (07:12)
[2019-04-16] MEDS: HYDROXYCHLOROQUINE SULFATE 200 MG TAB PO SCH (07:12)
[2019-04-16] MEDS: DOCUSATE SODIUM/SENNA 50/8.6MG TAB PO SCH (07:12)
[2019-04-16] MEDS: OLMESARTAN MEDOXOMIL 40 MG TAB PO SCH (07:12)
[2019-04-16] MEDS: MAGNESIUM HYDROXIDE SUSP 30 ML UDC PO SCH (07:14)
--- NOTE | 2019-04-16 08:09 | Anesthesiology Progress Note ---
Date of Service April 16, 2019 Anesthesia Post Procedure Vital Signs Vital Signs: Temp Pulse Pulse Resp BP BP Pulse Ox 04/16/19 07:42 36.5 C 77 84 16 148/90 H 150/79 H 95 04/16/19 07:06 36.5 C 84 16 148/90 H 95 04/15/19 23:13 36.5 C 77 16 150/79 H 97 04/15/19 15:37 36.5 C 84 16 129/86 96 04/15/19 12:00 36.5 C 90 18 137/87 97 04/15/19 10:00 36.5 C 93 H 18 134/88 95 04/15/19 09:33 87 18 131/77 95 04/15/19 09:00 36.4 C L 87 14 163/91 H 97 04/15/19 08:45 36.6 C 86 18 136/85 97 04/15/19 08:35 79 14 136/85 98 04/15/19 08:25 74 15 144/97 H 100 04/15/19 08:15 79 17 142/89 H 100 Pain Intensity Right Groin: Pain Intensity: 3 Notes Mental Status: alert / awake / arousable Patient Amnestic to Procedure: Yes Nausea / Vomiting: adequately controlled Pain: adequately controlled Airway Patency, RR, SpO2: stable & adequate BP & HR: stable & adequate Hydration State: stable & adequate Anesthetic Complications: no major complications apparent and Pt Satisfied with anesthetic care
[2019-04-16] MEDS ORDERED: allopurinoL 300 MG TAB PO SCH (09:00)
--- NOTE | 2019-04-17 12:48 | Discharge Summary ---
PRINCIPAL DIAGNOSIS: Right inguinal hernia. PROCEDURES: The patient underwent open right inguinal hernia repair. HISTORY OF PRESENT ILLNESS: The patient is a 68-year-old male with a known right inguinal hernia. HOSPITAL COURSE: He was brought into the hospital on 04/15/2019 where he underwent open right inguinal hernia repair which he tolerated very well. He was kept overnight, did well overnight with normal findings the next morning and felt stable for discharge home on 04/16/2019 to be followed in the surgical clinic within 1 week.
== END 2019-04-16 09:00 | disposition home or self-care (01) ==
LOC: 3N 05:26 → ASU 05:26